=== PATIENT | male | born 1975 | race Asian ===

== ENCOUNTER 2023-09-08 15:17 | Emergency (ER) | payer OTHER ==
[2023-09-08 15:27] VITALS: BP 144/91; PULSE 78; RESP 18; TEMP 98; BMI 26.7
[2023-09-08] MEDS: ACETAMINOPHEN 325 MG TABLET (FP) PO ONE (16:38)
[2023-09-08] MEDS ORDERED: ACETAMINOPHEN 325 MG TABLET (FP) ONE (16:40)
[2023-09-08 16:44] LABS: EOS % 3.8 % (0-4.5); HEMATOCRIT 41.1 % (35.4-49); HEMOGLOBIN 13.7 GM/dL (11.7-16.9); LYMPH % 44.9 % (8-40); MCH 29.7 pg (25.7-33.7); MCHC 33.3 g/dl (32.0-35.9); MEAN CELL VOLUME 89.1 fl (80-96); MEAN PLT VOLUME 7.3 fl (7.5-11.1); MONO % 8.5 % (3.8-10.2); NEUT % 41.8 % (42.8-82.8); PLATELET COUNT 337 10^3/uL (134-434); RBC 4.62 M/mm3 (4.00-5.60); RDW 14.2 % (11.9-15.9); WHITE BLOOD COUNT 10.4 K/mm3 (4.0-10.0)
[2023-09-08 16:53] LABS: INR 0.91 (0.83-1.09); PROTHROMBIN TIME (PATIENT) 10.3 SEC (9.7-13.0)
[2023-09-08 17:09] LABS: CALCIUM 8.7 mg/dL (8.5-10.1)
[2023-09-08 17:10] LABS: MAGNESIUM 2.3 mg/dL (1.8-2.4)
[2023-09-08 17:11] LABS: ALBUMIN 3.8 g/dl (3.4-5.0)
[2023-09-08 17:12] LABS: BLOOD UREA NITROGEN 13.1 mg/dL (7-18)
[2023-09-08 17:13] LABS: CREATININE 0.8 mg/dL (0.55-1.3)
[2023-09-08 17:16] LABS: BILIRUBIN,TOTAL 0.4 mg/dL (0.2-1)
== END 2023-09-08 18:25 | disposition home or self-care (01) ==
LOC: JER 15:17
DX: R07.89 Other chest pain (principal); R20.2 Paresthesia of skin
CPT/HCPCS: 36415; 71046-TC-FY; 80053; 80061; 83735; 84484; 85025; 85610; 85730; 93005; 93010; 99285-25